=== PATIENT | female | born 1970 | race Caucasian/White ===

== ENCOUNTER → 2016-07-01 | Outpatient (CLI) | payer BC ==
--- NOTE | 2016-07-02 09:07 | MM ---
Reason for exam: screening (asymptomatic). Last mammogram was performed 1 year and 8 months ago. History: Took hormonal contraceptives for 11 years beginning at age 16. Physical Findings: A clinical breast exam by your physician is recommended on an annual basis and results should be correlated with mammographic findings. MG Screening Mammo w CAD Bilateral CC and MLO view(s) were taken. Prior study comparison: November 10, 2014, bilateral MG screening mammo w CAD. The breast tissue is extremely dense which could obscure a lesion on mammography. No significant changes when compared with prior studies. ASSESSMENT: Benign, BI-RAD 2 RECOMMENDATION: Routine screening mammogram of both breasts in 1 year.
== END | disposition home or self-care (01) ==
LOC: RADMAMWWP 08:42
PROVIDERS: ATTEND Obstetrics & Gynecology
DX: Z12.31 Encounter for screening mammogram for malignant neoplasm of breast (principal); N64.52 Nipple discharge

== ENCOUNTER → 2017-02-27 | Outpatient (CLI) | payer BC ==
--- NOTE | 2017-02-27 14:27 | MM ---
Reason for exam: clinical finding. Last mammogram was performed 8 months ago. History: Took hormonal contraceptives for 11 years beginning at age 16. Physical Findings: Nurse did not find any significant physical abnormalities on exam. MG 3D Diag Mammo W/Cad LT CC, MLO, and XCCL view(s) were taken of the left breast. Prior study comparison: July 01, 2016, bilateral MG screening mammo w CAD. November 10, 2014, bilateral MG screening mammo w CAD. The breast tissue is heterogeneously dense. This may lower the sensitivity of mammography. No suspicious abnormality. These results were verbally communicated with the patient and result sheet given to the patient on 02/27/17. ASSESSMENT: Negative, BI-RAD 1 RECOMMENDATION: Return to routine screening mammogram schedule for both breasts. Back on schedule for June 2017.
--- NOTE | 2017-02-27 14:36 | USB ---
Reason for exam: clinical finding. History: Took hormonal contraceptives for 11 years beginning at age 16. US Breast LT Left breast ultrasound includes all four quadrants, the retroareolar region and axilla. Finding demonstrates a 0.6 x 0.3 x 0.7cm mixed lesion at 1 o'clock for which a biopsy is recommended, a 0.8 x 0.4 x 0.6cm hyperechoic lesion within a duct at 5 o'clock for which a biopsy is recommended, a 0.3 x 0.3 x 0.5cm lesion at 6 o'clock, increased through transmission, benign cyst and duct ectasia at the posterior nipple. These results were verbally communicated with the patient and result sheet given to the patient on 02/27/17. ASSESSMENT: Suspicious, BI-RAD 4 RECOMMENDATION: Ultrasound core biopsy of the left breast. Called Dr. Tafoya with mammographic findings and has scheduled an appointment for the patient for 03/10/17 at 11:[address] Mitchell. Biopsy scheduled for 03/02/17 at 12:20. PRELIMINARY REPORT CALLED AND FAXED TO DR. MITCHELL ON 02/27/17.
== END | disposition home or self-care (01) ==
LOC: RADMAMWWP 09:46
PROVIDERS: ATTEND Obstetrics & Gynecology
DX: N64.52 Nipple discharge (principal); N64.4 Mastodynia
CPT/HCPCS: 77065; 76641; G0279

== ENCOUNTER → 2017-03-02 | Day surgery (SDC) | payer BC ==
[2017-03-02 11:50] VITALS: RESP 16; BMI 32.3
[2017-03-02 13:43] VITALS: BP 123/80; PULSE 75; TEMP 99.1
--- NOTE | 2017-03-02 15:18 | USB ---
EXAMINATION TYPE: US biopsy breast VAD LT, US biopsy breast add'l VAD LT, Post biopsy diagnostic mammo LT wo CAD DATE OF EXAM: 03/02/2017 CLINICAL HISTORY: 46-year-old female R92.8 Abnormal Mammogram. TECHNIQUE: Ultrasound guided core biopsy of the left breast, 2 sites. Patient with bloody nipple discharge. COMPARISON: 02/27/2017 FINDINGS: The procedure of ultrasound guided core biopsy was explained to the patient. Benefits, alternatives, and risks were discussed. An informed consent was then obtained. The patient was placed in supine positioning for imaging and for the procedure. The overlying skin was prepped and draped in usual sterile fashion. Lidocaine buffered with bicarbonate was used as anesthetic into the skin and subcutaneous tissue up to area of concern in the left breast at each lesion in turn. SITE 1, intraductal mass, 5:00: Under ultrasound guidance, a a 13-gauge vacuum- assisted mammotome Elite biopsy gun device was used to obtain 6 core samples. Following this, a coil clip was left in lesion. Small amount of bleeding was present, approximately 5 ml or less. SITE 2, oval hypoechoic, 1:00: Under ultrasound guidance, a a 13-gauge vacuum- assisted mammotome Elite biopsy gun device was used to obtain 5 core samples. Following this, a ribbon clip was left in lesion. The patient tolerated the procedure well without any immediate complication. The patient was kept in the radiology department for short stay after the procedure and then discharged home in stable condition. IMPRESSION: Successful, uncomplicated ultrasound guided core biopsy of area of concern in the left breast, 2 sites: Site 1, intraductal mass likely etiology of patient's bloody nipple discharge ( coil clip). Site 2, ovoid hypoechoic lesion, relatively low suspicion (ribbon clip). Full pathology results to follow. Pathology Results: High Risk A. BREAST, LEFT, 5:00, STEREOTACTIC CORE BIOPSY: INTRADUCTAL PAPILLOMA. STROMAL FIBROSIS, CYST FORMATION, APOCRINE METAPLASIA, DUCT ECTASIA, AND DUCT HYPERPLASIA. B. BREAST, LEFT, 1:00, BIOPSY: FIBROCYSTIC CHANGE (FIBROSIS, CYST FORMATION, APOCRINE METAPLASIA, DUCT ECTASIA AND DUCT HYPERPLASIA). Recommendation Surgical consult of the left breast. ALE
== END ==
LOC: RADUSWWP 11:25
PROVIDERS: ATTEND Surgery
DX: D24.2 Benign neoplasm of left breast (principal); N60.32 Fibrosclerosis of left breast; N60.02 Solitary cyst of left breast; N60.82 Other benign mammary dysplasias of left breast; N60.42 Mammary duct ectasia of left breast; N60.92 Unspecified benign mammary dysplasia of left breast; R92.8 Other abnormal and inconclusive findings on diagnostic imaging of breast
CPT/HCPCS: 88305; 77065; 19083; 19084; A4648; J2001

== ENCOUNTER 2017-03-13 08:32 | Day surgery (SDC) | payer BC ==
[2017-03-11 11:15] VITALS: BMI 32.3
--- NOTE | 2017-03-13 07:56 | P.GSHP ---
History of Present Illness H&P Date: 03/13/17 Chief Complaint: Abnormal breast imaging study 46 yrs old female presenting with bloody nipple discharge left breast. No breast pain . No axillary mass or breast mass. Mammogram was negative. US showed suspicious at 1 and 5 o clock and biopsy recommended. US guided core bx performed and shows following: A. BREAST, LEFT, 5:00, STEREOTACTIC CORE BIOPSY: INTRADUCTAL PAPILLOMA. STROMAL FIBROSIS, CYST FORMATION, APOCRINE METAPLASIA, DUCT ECTASIA, AND DUCT HYPERPLASIA. B. BREAST, LEFT, 1:00, BIOPSY: FIBROCYSTIC CHANGE (FIBROSIS, CYST FORMATION, APOCRINE METAPLASIA, DUCT ECTASIA AND DUCT HYPERPLASIA). - Review of Systems Comment: Constitutional: No fever, chills or rigors. No weight loss or loss of appetite. HEENT: No difficulty with hearing, vision and swallowing. Lymphatic: No axillary, inguinal and cervical swellings. Endocrine: No thyroid disorders. Denies history of diabetes. Respiratory: No chest pain, shortness of breath, and cough. No hemoptysis. Cardiovascular: No palpitations, irregular HR Gastrointestinal: Denies heartburn. No change in bowel habits. No nausea or vomiting. Genitourinary: No increase in urinary frequency or urgency. No hematuria. Musculoskeletal: No back pain, joint stiffness or pain. Neurologic: No history of seizure disorder and headaches. Psychiatric: Denies depression or anxiety . No suicidal ideation. Hematologic: Denies any abnormal mucosal bleeding or easy bruising. Past Medical History Past Medical History: No Reported History Additional Past Medical History / Comment(s): papilloma left breast,hx colon polyps History of Any Multi-Drug Resistant Organisms: None Reported Past Surgical History: Tonsillectomy Additional Past Surgical History / Comment(s): left breast bx,colonoscopy Past Anesthesia/Blood Transfusion Reactions: No Reported Reaction Smoking Status: Former smoker - Past Family History Mother History Unknown: Yes Medications and Allergies Home Medications Medication Instructions Recorded Confirmed Type PARoxetine [Paxil] 10 mg PO QAM 02/27/17 03/11/17 History buPROPion XL [Wellbutrin Xl] 150 mg PO QAM 02/27/17 03/11/17 History Allergies Allergy/AdvReac Type Severity Reaction Status Date / Time No Known Allergies Allergy Verified 03/11/17 11:04 Surgical - Exam General: Patient is alert and oriented to time, place and person and cooperative with exam. HEENT: No pallor, no icterus, no thyroid enlargement. Chest: Bilateral equal breath sounds present. Cardiovascular: Regular rate and rhythm. Abdomen: Soft, nontender, nondistended. Integumentary: Bilateral lower extremity chronic venous dermatitis. No active ulcers or discharge. Neurologic: Cranial nerves II-XII intact. Strength upper and lower extremities 5/5. No focal neurologic deficits. Gait is normal. Breasts: Symmetrical, no palpable mass. No nipple retraction. No nipple discharge Results - Imaging Comments: Mammogram and US reviewed Assessment and Plan (1) Intraductal papilloma of left breast Status: Acute Code(s): D24.2 - BENIGN NEOPLASM OF LEFT BREAST SNOMED Code(s) : 8013219138209930 Plan: 1. Intraductal papilloma left breast with bloody nipple discharge 2. Wire loc excision of left breast lesion at 5 o clock by US. 3. Informed consent obtained
[~2017-03-13 08:32] MED LIST: DEXAMETHASONE SOD PHOSPHATE 10 MG/ML 1 ML VIAL IV ONE; HEPARIN SODIUM,PORCINE 5,000 UNIT/ML 1 ML VIAL SQ ONE; LACTATED RINGERS 1,000 ML IV SCH; MIDAZOLAM 2 MG/2 ML VIAL IV PRN; MORPHINE SULFATE 4 MG/ML SYRINGE IV PRN; ONDANSETRON 4 MG/2 ML VIAL IVP ONE; Pre Op ABX Message 1 EACH MISC MISCELLANE ONE; SCOPOLAMINE 1.5MG/72HR PATCH TRANSDERM ONE
[2017-03-13 08:56] VITALS: RESP 16
[2017-03-13] MEDS ORDERED: LIDOCAINE 1% INJ 10MG/ML (20 ML MDV) SQ ONE (10:12)
[2017-03-13] MEDS ORDERED: SODIUM BICARB 4% 5 ML VIAL (0.48 MEQ/ML) MISCELLANE ONE (10:12)
[2017-03-13] MEDS ORDERED: LIDOCAINE 1%/EPI 1:200,000 MPF 10 ML VIAL SQ ONE (10:12)
[2017-03-13] MEDS ORDERED: PROPOFOL 10 MG/ML 20 ML VIAL IV ONE (11:16)
[2017-03-13] MEDS ORDERED: fentaNYL (PF) 50 MCG/ML 2 ML AMP ONE (11:16)
[2017-03-13] MEDS ORDERED: MIDAZOLAM 2 MG/2 ML VIAL ONE (11:16)
[2017-03-13] MEDS ORDERED: SODIUM CHLORIDE 0.9% 50 ML with ceFAZolin 2,000 MG IV ONE ×2 (11:38)
[2017-03-13] MEDS ORDERED: LIDOCAINE 1%-EPI 1:100,000 20 ML VIAL SQ ONE (11:47)
[2017-03-13] MEDS ORDERED: LACTATED RINGERS 1,000 ML IV ONE (12:09)
[2017-03-13 12:23] VITALS: TEMP 97.9
[2017-03-13 13:06] VITALS: BP 130/79; PULSE 91
[2017-03-13] MEDS ORDERED: Acetaminophen-Codeine 300-30mg TAB PO ONE (13:06)
--- NOTE | 2017-03-13 13:57 | MM ---
EXAMINATION TYPE: MG pre op needle loc LT, MG surgical specimen LT DATE OF EXAM: 03/13/2017 COMPARISON: Prior mammogram March 02, 2017 and older studies. CLINICAL HISTORY: High risk ultrasound-guided core biopsy March 02, 2017 with papilloma. Positive discharge. TECHNIQUE: Needle localization with wire placement and surgical excision of area of concern in the left breast. FINDINGS: The procedure of needle localization with wire placement and than surgical excision was explained to the patient. Benefits, alternatives, and risks were discussed. An informed consent was then obtained. The shortest pathway for procedure was chosen. Shortest pathway was inferior approach. The overlying skin was prepped and draped in usual sterile fashion. Lidocaine buffered with bicarbonate was used as anesthetic into the skin. Lidocaine with epinephrine is used as anesthetic into the deeper tissue up to the level of area of concern. A 5 cm needle was used. During injection of anesthetic there was blood and anesthetic coming from nipple. It was placed via a inferior approach under mammographic guidance. Subsequent 90 degrees mammogram show the needle to be in satisfactory position relative to the targeted area. At this point, wire was placed and the needle was withdrawn. The wire was fixed to patient's skin. Images were marked for surgeon. The patient tolerated the procedure well without any immediate complication. The patient was kept in the radiology department for short stay after the procedure and then taken to surgery for surgical excision. Targeted biopsy clip and wire are identified in specimen mammogram. The patient was kept in hospital for short stay after the procedure and then discharged home in stable condition. IMPRESSION: Successful, uncomplicated needle localization with wire placement and surgical excision of targeted biopsy clip in the left breast, full pathology results to follow. Pathology Results: High Risk BREAST, LEFT, NEEDLE LOCALIZATION EXCISION: INTRADUCTAL PAPILLOMA, MARGINS NEGATIVE. BACKGROUND FIBROCYSTIC CHANGES INCLUDING FIBROSIS, CYSTS, APORINE METAPLASIA AND SCLEROSING ADENOSIS. PREVIOUS BIOPSY SITE. Recommendation Follow up mammogram of the left breast in 6 months. ALE
--- NOTE | 2017-03-21 12:41 | P.OP ---
Date of Procedure: 03/13/17 Preoperative Diagnosis: Bloody nipple discharge left breast Intraductal papilloma Postoperative Diagnosis: Same Procedure(s) Performed: Left breast wire localization lumpectomy Implants: NA Anesthesia: MAC, local Surgeon: Lisette Mitchell Estimated Blood Loss (ml): 5 Pathology: other Condition: stable Disposition: PACU Indications for Procedure: 46 yrs old female presented with abnormal US left breast. Mammogram was benign. US showed lesions at 1, 5 and 6 o clock left breast and biopsy recommended of 1 and 5 o' clock lesions. 5 o clock biopsy shows intraductal papilloma and 1 o clock biopsy shows fibrocystic changes. She has intermittent bloody left nipple discharge predominantly from one duct. Patient agreed to undergo wire loc lumpectomy of 5 o clock area. Description of Procedure: The mammogram films from wire localization biopsy were reviewed. The patient was brought to the operating room and placed in supine position with both arms out. IV sedation was given as per anesthesia team. The excess wire was cut and the left breast was prepped using ChloraPrep. Sterile drapes were applied. A timeout was performed to verify correct patient, correct procedure and correct side. Patient was confirmed to receive perioperative IV antibiotics , heparin 5000 units subcutaneous injection for DVT prophylaxis and bilateral SCDs. A 3 cm curvilinear skin incision was made along the left areola border at the wire exit site. Superior and inferior subcutaneous flaps were raised in the direction of wire. A 2 cm circumferential breast tissue was removed around the wire and the tip of the wire was included in the specimen. The offending duct filled with bloody material was identified and completely excised. The specimen was then labeled with different colors as per the protocol. It was sent off as a specimen for pathology evaluation . The resulting defect was irrigated with normal saline and checked for hemostasis. The defect measured 3.8 x 2.2x 1.5 cm. Medium clips applied to racquel the cavity. This was closed in 2 layers using interrupted sutures of 3-0 Vicryl followed by running subcuticular stitches of 4-0 Monocryl. Dermabond skin glue was applied. The sponge, instrument and needle count were correctx 2. Phone formation received during surgery that the area of concern along with the clip and wire was included in the specimen. Patient tolerated the procedure well and was taken to post anesthesia care unit in stable condition. Final Pathologic Diagnosis BREAST, LEFT, NEEDLE LOCALIZATION EXCISION: INTRADUCTAL PAPILLOMA, MARGINS NEGATIVE. BACKGROUND FIBROCYSTIC CHANGES INCLUDING FIBROSIS, CYSTS, APOCRINE METAPLASIA AND SCLEROSING ADENOSIS. PREVIOUS BIOPSY SITE.
== END 2017-03-13 14:00 | disposition home or self-care (01) ==
LOC: OR 08:32
PROVIDERS: ATTEND Surgery
DX: D24.2 Benign neoplasm of left breast (principal); N60.32 Fibrosclerosis of left breast; N60.82 Other benign mammary dysplasias of left breast; N60.22 Fibroadenosis of left breast; Z79.899 Other long term (current) drug therapy; Z87.891 Personal history of nicotine dependence; Z86.010 Personal history of colon polyps
CPT/HCPCS: 19125; 88307; 76098; 19281; J2250; J1644; J1100; J2405; J2001; J3010; J0690; J2704

== ENCOUNTER → 2017-09-25 | Outpatient (CLI) | payer BC ==
--- NOTE | 2017-09-26 11:06 | MM ---
Reason for exam: follow-up at short interval from prior study. Last mammogram was performed 7 months ago. History: Patient has history of high-risk lesion on a previous biopsy at age 46. High risk MG pre op needle loc LT of the left breast, March 13, 2017. High risk US biopsy breast VAD LT of the left breast, March 02, 2017. High risk US biopsy breast add'l VAD LT of the left breast, March 02, 2017. Took hormonal contraceptives for 11 years beginning at age 16. Physical Findings: Nurse did not find any significant physical abnormalities on exam. MG 3D Diag Mammo W/Cad CELIA Bilateral CC and MLO view(s) were taken. Prior study comparison: March 02, 2017, left breast MG diagnostic mammo LT wo CAD. February 27, 2017, left breast MG 3d diag mammo w/cad LT. The breast tissue is heterogeneously dense. This may lower the sensitivity of mammography. Finding: There is an oval mass in the lower inner quadrant of the right breast at medial depth for which ultrasound will be performed. Left breast biopsy marker noted with post excision changes at anterior depth. These results were verbally communicated with the patient and result sheet given to the patient on 10/03/17. ASSESSMENT: Incomplete: need additional imaging evaluation, BI-RAD 0 RECOMMENDATION: Ultrasound of the right breast. Diagnostic ultrasound right breast lower inner quadrant.
--- NOTE | 2017-09-26 11:11 | USB ---
Reason for exam: additional evaluation requested from prior study. History: Patient has history of high-risk lesion on a previous biopsy at age 46. High risk MG pre op needle loc LT of the left breast, March 13, 2017. High risk US biopsy breast VAD LT of the left breast, March 02, 2017. High risk US biopsy breast add'l VAD LT of the left breast, March 02, 2017. Took hormonal contraceptives for 11 years beginning at age 16. US Breast Limited RT Technologist: Ledy Ramirez, RT (R)(M) Right limited breast ultrasound including focal area of concern, retroareolar and axilla demonstrates a 11 x 6 x 6 mm oval cystic lesion at 5 o'clock, a 4 x 4 x 4 mm cystic lesion at 5 o'clock, correlates with the mammogram. ASSESSMENT: Benign, BI-RAD 2 RECOMMENDATION: Routine screening mammogram of both breasts in 1 year.
== END | disposition home or self-care (01) ==
LOC: RADMAMWWP 11:15
PROVIDERS: ATTEND Obstetrics & Gynecology
DX: R92.8 Other abnormal and inconclusive findings on diagnostic imaging of breast (principal)
CPT/HCPCS: 77062; 77066

== ENCOUNTER → 2018-01-19 | Outpatient (CLI) | payer BC ==
[2018-01-19 15:01] LABS: Basophils % (A) 0 %; Eosinophils # (A) 0.1 k/uL (0-0.7); Eosinophils % (A) 2 %; HCT 43.1 % (34.0-46.0); Lymphocytes # (A) 2.8 k/uL (1.0-4.8); Lymphocytes % (A) 35 %; MCH 31.8 pg (25.0-35.0); MCHC 34.8 g/dL (31.0-37.0); MCV 91.3 fL (80.0-100.0); Mean Platelet Volume 6.6; Monocytes # (A) 0.5 k/uL (0-1.0); Monocytes % (A) 6 %; Neutrophils # (A) 4.4 k/uL (1.3-7.7); Neutrophils % (A) 55 %; Platelet Count 239 k/uL (150-450); RBC 4.71 m/uL (3.80-5.40); RDW 13.3 % (11.5-15.5)
[2018-01-19 15:19] LABS: Anion Gap 9 mmol/L; Blood Urea Nitrogen 12 mg/dL (7-17); Carbon Dioxide 25 mmol/L (22-30); Chloride 108 mmol/L (98-107); Glucose 120 mg/dL (74-99); Potassium 4.6 mmol/L (3.5-5.1); Sodium 142 mmol/L (137-145)
== END | disposition home or self-care (01) ==
LOC: LABPAT 11:40
PROVIDERS: ATTEND Obstetrics & Gynecology
DX: Z01.812 Encounter for preprocedural laboratory examination (principal); R87.612 Low grade squamous intraepithelial lesion on cytologic smear of cervix (LGSIL)
CPT/HCPCS: 80051; 82565; 82947; 84520; 85025; 87086

== ENCOUNTER 2018-01-25 05:36 | Day surgery (SDC) | payer BC ==
[2018-01-18 12:06] VITALS: BMI 31.5
[~2018-01-25 05:36] MED LIST changes: -HEPARIN SODIUM,PORCINE 5,000 UNIT/ML 1 ML VIAL SQ ONE; +HYDROmorphone 0.5 MG/0.5 ML SYRINGE IVP PRN; -LACTATED RINGERS 1,000 ML IV SCH; +LIDOCAINE 1% 20 ML VIAL (10MG/ML) FOR IV START INTRADERMA PRN; -MORPHINE SULFATE 4 MG/ML SYRINGE IV PRN; -Pre Op ABX Message 1 EACH MISC MISCELLANE ONE; +ceFAZolin IN SWFI 2 GM/20 ML SYRINGE IVP ONE
[2018-01-25] MEDS: LACTATED RINGERS 1,000 ML IV SCH (06:27)
[2018-01-25] MEDS ORDERED: diphenhydrAMINE 50 MG/ML 1 ML VIAL ONE (07:19)
[2018-01-25] MEDS ORDERED: MIDAZOLAM 2 MG/2 ML VIAL ONE (07:19)
[2018-01-25] MEDS ORDERED: KETOROLAC 30 MG/ML 1 ML VIAL ONE (07:19)
[2018-01-25] MEDS ORDERED: fentaNYL (PF) 50 MCG/ML 2 ML AMP ONE (07:19)
[2018-01-25] MEDS ORDERED: KETOROLAC 30 MG/ML 1 ML VIAL IVP PRN ×2 (07:48→08:32)
[2018-01-25] MEDS ORDERED: NALBUPHINE 10 MG/ML VIAL (10ML MDV) IV PRN (07:48)
[2018-01-25] MEDS ORDERED: NALOXONE 0.4 MG/ML 1 ML VIAL IV PRN (07:48)
[2018-01-25] MEDS ORDERED: MORPHINE SULFATE 4 MG/ML SYRINGE IVP PRN (07:48)
[2018-01-25] MEDS ORDERED: diphenhydrAMINE 25 MG CAP PO PRN ×2 (07:48→08:32)
[2018-01-25] MEDS ORDERED: VASOPRESSIN 20 UNIT/ML 1 ML VIAL SQ ONE ×2 (07:49)
[2018-01-25] MEDS ORDERED: BACITRACIN 500 UNIT/GM OINT 28.4 GM TUBE TOPICAL ONE ×2 (07:56→08:26)
[2018-01-25] MEDS ORDERED: SIMETHICONE 80 MG CHEWABLE PO PRN (08:32)
[2018-01-25] MEDS ORDERED: Acetaminophen-Codeine 300-30mg TAB PO PRN (08:32)
[2018-01-25] MEDS ORDERED: METOCLOPRAMIDE 5 MG/ML 2 ML VIAL IVP PRN (08:32)
[2018-01-25] MEDS ORDERED: ONDANSETRON 4 MG/2 ML VIAL IVP PRN (08:32)
--- NOTE | 2018-01-25 08:32 | P.OP ---
Date of Procedure: 01/25/18 Preoperative Diagnosis: Persistently abnormal Pap smear Postoperative Diagnosis: Same, normal-appearing ovaries bilaterally, pathology pending Procedure(s) Performed: Vaginal hysterectomy Anesthesia: spinal Surgeon: Radha Tafoya Tax Lawyer #1: Nik Armendariz Estimated Blood Loss (ml): 25 IV fluids (ml): 800 Urine output (ml): 400 Pathology: other (Cervix and uterus) Condition: stable Disposition: PACU Indications for Procedure: Persistently abnormal Pap smear despite LEEP procedure Operative Findings: Normal-appearing ovaries bilaterally Description of Procedure: Patient is brought to the [facility] and suite where a spinal with Duramorph is administered. Antibiotics are given. Urine hCG is negative. The appropriate timeout is performed to assure proper patient and procedural identification. The cervix, vagina, and perineal bodies are all prepped and draped in usual sterile fashion. The weighted speculum was placed into the vagina. The bladder is drained for approximately 400 mL of clear yellow urine. The anterior lip of the cervix is grasped with a double-tooth tenaculum and the cervix is injected circumferentially with a dilute Pitressin solution, 10 mL total. A mechoopda scalpel blade is used circumferentially to incise the mucosa with a V positioning at 6:00. A sponge is used to sweep the mucosa from the underlying fascial plane. Peritoneum is entered at 6:00 and suture tied with 2-0 Vicryl. The large billed speculum was then placed into the vagina. At all times the mucosa is Well from the operative field to avoid bladder and/or ureteral injury. Frank clamps are used and the right uterosacral ligament is identified, clamped, cut and held with a 0 Vicryl suture laterally. Same is carried out on the contralateral pedicle. Uterine vasculature is identified, clamped cut and suture ligated. 2 additional pedicles are taken superior to the vessels. Anterior peritoneum was entered at 12:00. The uterus is "walked out" posteriorly. Frank clamps are used across the final pedicles and the uterus and cervix are removed and sent to pathology. The pedicles are suture tied with 0 Vicryl, flashed, and retied for excellent hemostasis. Bilateral ovaries are inspected and noted to be normal. All pedicles are reevaluated and noted to be clean and dry. Speculum is replaced with the shallow billed speculum and the 2-0 Vicryl suture is brought around in a pursestring fashion to close the peritoneum. The uterosacral ligament complex these are then brought across to incorporate the opposite ligament and vaginal mucosa. 3 additional [id number] sutures are used of 0 Vicryl for final cuff closure. Vagina is packed with one-inch iodophor gauze with basic tracing. Calixto catheter is placed and urine is clear. All sponge needle and enhancement counts are correct. Total estimated blood loss 25 mL's. Fluid replacement 800 mL's. Patient is brought back to the recovery room in very stable condition with a blood pressure of 150/75, pulse of 80, 100% O2 saturation.
[2018-01-25] MEDS ORDERED: LACTATED RINGERS 1,000 ML IV ONE ×2 (09:00)
[2018-01-25] MEDS ORDERED: ZOLPIDEM 5 MG TAB PO PRN (21:00)
[2018-01-26] MEDS: IBUPROFEN 600 MG TAB PO PRN ×2 (05:46→12:21)
[2018-01-26] MEDS: LACTATED RINGERS 1,000 ML IV SCH (06:06)
--- NOTE | 2018-01-26 06:57 | P.DS ---
Providers Date of admission: 01/25/18 Expected date of discharge: 01/26/18 Attending physician: Radha Tafoya Primary care physician: April Fontana Hospital Course: This is a 47-year-old white female 2 para 2001 who presented with a persistently abnormal Pap smear. She has had a previous LEEP procedure, however repeat Pap smears are still consistent with low-grade ADELA, positive ECC. After thorough consultation, patient elected to proceed with vaginal hysterectomy. Please see dictated history and physical for details. Patient was admitted and underwent vaginal hysterectomy under my care yesterday. She did very well intraoperatively. Ovaries appeared normal and were left in situ per her wishes. Vaginal packing was placed, Calixto catheter placed, patient did receive spinal with Duramorph. Please see dictated operative note for details. This morning the patient is doing well. Calixto catheter and vaginal packing had been removed. She is passing gas. She is urinating spontaneously. There is no vaginal bleeding. Vital signs are stable and she is afebrile. There is no CVA tenderness. Abdomen is soft and nontender, active bowel sounds. Chest is clear. Patient is judged to be in excellent condition for discharge home. Patient will follow-up with me in the office in 2 weeks. I have reminded her no intercourse, tampons, heavy lifting, no douching. No driving for 2 weeks. She will call with any vaginal bleeding, any pain not alleviated by over-the- counter Advil or Aleve, any difficulties ambulating, or indeed with any concerns. Patient Condition at Discharge: Good Plan - Discharge Summary Discharge Rx Participant: No New Discharge Prescriptions: No Action buPROPion XL [Wellbutrin Xl] 150 mg PO QAM PARoxetine [Paxil] 20 mg PO QAM Crestor Dose Unk 1 each PO DAILY Discharge Medication List PARoxetine [Paxil] 20 mg PO QAM 02/27/17 [History] buPROPion XL [Wellbutrin Xl] 150 mg PO QAM 02/27/17 [History] Crestor Dose Unk 1 each PO DAILY 01/18/18 [History] Follow up Appointment(s)/Referral(s): Radha Tafoya MD [STAFF PHYSICIAN] - 2 Weeks Discharge Disposition: HOME SELF-CARE
--- NOTE | 2018-01-26 07:11 | P.PN ---
Progress Note - Text Progress Note Date: 01/26/18 Patient is postop day 1 vaginal hysterectomy with Duramorph spinal. Patient doing well with no motor sensory deficits. No nausea, vomiting, pruritus. Ambulate without any complications, tolerating diet. Patient to be sent home today.
[2018-01-26 07:46] VITALS: BP 128/71; PULSE 69; TEMP 98.7
[2018-01-26] MEDS ORDERED: buPROPion XL 150 MG TAB.ER.24H PO SCH (09:00)
[2018-01-26] MEDS ORDERED: PARoxetine 20 MG TAB PO SCH (09:00)
[2018-01-26 13:17] VITALS: RESP 17
== END 2018-01-26 13:10 | disposition home or self-care (01) ==
LOC: OR 05:36 → 4FBP 08:46 → OR 01-26 13:10
PROVIDERS: ATTEND Obstetrics & Gynecology
DX: N87.1 Moderate cervical dysplasia (principal); E78.5 Hyperlipidemia, unspecified; F41.9 Anxiety disorder, unspecified; F39 Unspecified mood [affective] disorder; Z79.82 Long term (current) use of aspirin; Z79.3 Long term (current) use of hormonal contraceptives; Z79.899 Other long term (current) drug therapy; Z88.8 Allergy status to other drugs, medicaments and biological substances; Z87.891 Personal history of nicotine dependence
CPT/HCPCS: 81025; 88309; 58260; J2250; J1200; J1100; J2405; J3010; J1885; J0690; 86850; 86900; 86901

== ENCOUNTER → 2018-12-10 | Outpatient (CLI) | payer BC ==
--- NOTE | 2018-12-13 08:24 | MM ---
Reason for exam: screening (asymptomatic). Last mammogram was performed 1 year and 2 months ago. History: Patient has history of high-risk lesion on a previous biopsy at age 46. High risk MG pre op needle loc LT of the left breast, March 13, 2017. High risk US biopsy breast VAD LT of the left breast, March 02, 2017. High risk US biopsy breast add'l VAD LT of the left breast, March 02, 2017. Took hormonal contraceptives for 11 years beginning at age 16. Physical Findings: A clinical breast exam by your physician is recommended on an annual basis and results should be correlated with mammographic findings. MG 3D Screening Mammo W/Cad Bilateral CC and MLO view(s) were taken. Prior study comparison: September 25, 2017, bilateral MG 3d diag mammo w/cad CELIA. March 02, 2017, left breast MG diagnostic mammo LT wo CAD. The breast tissue is extremely dense which could obscure a lesion on mammography. Benign appearing bilateral calcifications. Previous mammotome biopsy in the left breast. No significant changes when compared with prior studies. ASSESSMENT: Benign, BI-RAD 2 RECOMMENDATION: Routine screening mammogram of both breasts in 1 year.
== END | disposition home or self-care (01) ==
LOC: RADMAMWWP 10:16
PROVIDERS: ATTEND Obstetrics & Gynecology
DX: Z12.31 Encounter for screening mammogram for malignant neoplasm of breast (principal)
CPT/HCPCS: 77063; 77067

== ENCOUNTER → 2020-04-05 | Outpatient (CLI) | payer BC ==
--- NOTE | 2020-04-09 09:29 | MM ---
Reason for exam: screening (asymptomatic). Last mammogram was performed 1 year and 4 months ago. History: Patient is postmenopausal and has history of high-risk lesion on a previous biopsy at age 46. High risk MG pre op needle loc LT of the left breast, March 13, 2017. High risk US biopsy breast VAD LT of the left breast, March 02, 2017. High risk US biopsy breast add'l VAD LT of the left breast, March 02, 2017. Took hormonal contraceptives for 11 years beginning at age 16. Physical Findings: A clinical breast exam by your physician is recommended on an annual basis and results should be correlated with mammographic findings. MG 3D Screening Mammo W/Cad Bilateral CC and MLO view(s) were taken. Prior study comparison: December 10, 2018, bilateral MG 3d screening mammo w/cad. September 25, 2017, bilateral MG 3d diag mammo w/cad CELIA. The breast tissue is heterogeneously dense. This may lower the sensitivity of mammography. Previous mammotome biopsy in the left breast. Focal asymmetry left MLO. This finding is changed when compared with previous exams. ASSESSMENT: Incomplete: need additional imaging evaluation, BI-RAD 0 RECOMMENDATION: Special view mammogram of the left breast. If lesion persists on supplemental views, image directed ultrasound is recommended. [facility] will attempt to contact patient to return for supplemental views and ultrasound if indicated.
== END | disposition home or self-care (01) ==
LOC: RADMAMWWP 16:37
PROVIDERS: ATTEND Obstetrics & Gynecology
DX: Z12.31 Encounter for screening mammogram for malignant neoplasm of breast (principal)
CPT/HCPCS: 77063; 77067

== ENCOUNTER → 2020-04-18 | Outpatient (CLI) | payer BC ==
--- NOTE | 2020-04-19 09:29 | MM ---
Reason for exam: additional evaluation requested from abnormal screening. Last mammogram was performed less than 1 month ago. History: Patient is postmenopausal and has history of high-risk lesion on a previous biopsy at age 46. High risk MG pre op needle loc LT of the left breast, March 13, 2017. High risk US biopsy breast VAD LT of the left breast, March 02, 2017. High risk US biopsy breast add'l VAD LT of the left breast, March 02, 2017. Took hormonal contraceptives for 11 years beginning at age 16. Physical Findings: Nurse did not find any significant physical abnormalities on exam. MG 3D Work Up W/Cad LT Spot compression CC, spot compression MLO, and ML view(s) were taken of the left breast. Prior study comparison: April 05, 2020, bilateral MG 3d screening mammo w/cad. December 10, 2018, bilateral MG 3d screening mammo w/cad. The breast tissue is heterogeneously dense. This may lower the sensitivity of mammography. Previous mammotome biopsy in the left breast. The central posterior focal asymmetry appears to disperse on additional views. Precautionary 6 month follow up recommended given appearance on the screening exam. These results were verbally communicated with the patient and result sheet given to the patient on 04/18/20. ASSESSMENT: Probably benign, BI-RAD 3 RECOMMENDATION: Follow-up diagnostic mammogram of the left breast in 6 months.
== END ==
LOC: RADMAMWWP 14:53
PROVIDERS: ATTEND Obstetrics & Gynecology
DX: R92.2 Inconclusive mammogram (principal); Z78.0 Asymptomatic menopausal state
CPT/HCPCS: 77061; 77065

== ENCOUNTER → 2020-10-24 | Outpatient (CLI) | payer BC ==
--- NOTE | 2020-10-24 14:08 | MM ---
Reason for exam: follow-up at short interval from prior study. Last mammogram was performed 6 months ago. History: Patient is postmenopausal and has history of high-risk lesion on a previous biopsy at age 46. High risk MG pre op needle loc LT of the left breast, March 13, 2017. High risk US biopsy breast VAD LT of the left breast, March 02, 2017. High risk US biopsy breast add'l VAD LT of the left breast, March 02, 2017. Took hormonal contraceptives for 11 years beginning at age 16. Physical Findings: Nurse did not find any significant physical abnormalities on exam. MG 3D Diag Mammo W/Cad LT CC and MLO view(s) were taken of the left breast. Prior study comparison: April 18, 2020, left breast MG 3d work up w/cad LT. April 05, 2020, bilateral MG 3d screening mammo w/cad. The breast tissue is heterogeneously dense. This may lower the sensitivity of mammography. Previous mammotome biopsy in the left breast. There is no discrete abnormality including area of concern. These results were verbally communicated with the patient and result sheet given to the patient on 10/24/20. ASSESSMENT: Negative, BI-RAD 1 RECOMMENDATION: Return to routine screening mammogram schedule for both breasts. Back on schedule for March 2021.
== END | disposition home or self-care (01) ==
LOC: RADMAMWWP 13:15
PROVIDERS: ATTEND Obstetrics & Gynecology
DX: R92.8 Other abnormal and inconclusive findings on diagnostic imaging of breast (principal); Z78.0 Asymptomatic menopausal state
CPT/HCPCS: 77061; 77065

== ENCOUNTER → 2021-08-30 | Outpatient (CLI) | payer BC ==
--- NOTE | 2021-09-02 09:35 | MM ---
Reason for Exam: Screening (asymptomatic). Last mammogram was performed 1 year(s) and 5 month(s) ago. Patient History: Menarche at age 12. First Full-Term at age 28. Hysterectomy at age 48. Postmenopausal. Hormonal Contraceptives for 11 years from age 16 until age 27. 03/13/2017, High risk Core Biopsy on the left side. 03/02/2017, High risk Core Biopsy on the left side. 03/02/2017, High risk Core Biopsy on the left side. Risk Values: Kylie 5 year model risk: 1.6%. NCI Lifetime model risk: 14.5%. Prior Study Comparison: 04/05/2020 Bilateral Screening Mammogram, [facility]. 04/18/2020 Left Diagnostic Mammogram, [facility]. 10/24/2020 Left Diagnostic Mammogram, [facility]. Tissue Density: The breast tissue is heterogeneously dense. This may lower the sensitivity of mammography. Findings: Analyzed By CAD. Biopsy clip is seen within the left breast. There is no suspicious group of microcalcifications or new suspicious mass in either breast. Overall Assessment: Negative, BI-RAD 1 Management: Screening Mammogram of both breasts in 1 year. A clinical breast exam by your physician is recommended on an annual basis and results should be correlated with mammographic findings. Electronically signed and approved by: Larry Costello DO
== END | disposition home or self-care (01) ==
LOC: RADMAMWWP 15:57
PROVIDERS: ATTEND Obstetrics & Gynecology
DX: Z12.31 Encounter for screening mammogram for malignant neoplasm of breast (principal); Z78.0 Asymptomatic menopausal state
CPT/HCPCS: 77063; 77067

== ENCOUNTER → 2024-06-07 | Outpatient (CLI) | payer BC ==
--- NOTE | 2024-06-08 07:35 | MM ---
Reason for Exam: Screening (asymptomatic). Last mammogram was performed 1 year(s) and 7 month(s) ago. Patient History: Menarche at age 12. First Full-Term at age 28. Hysterectomy at age 48. Postmenopausal. Hormonal Contraceptives for 11 years from age 16 until age 27. 03/13/2017, High risk Core Biopsy on the left side. 03/02/2017, High risk Core Biopsy on the left side. 03/02/2017, High risk Core Biopsy on the left side. Risk Values: Kylie 5 year model risk: 1.8%. NCI Lifetime model risk: 13.8%. Prior Study Comparison: 10/24/2020 Left Diagnostic Mammogram, [facility]. 08/30/2021 Bilateral MG 3D screening mammo w/cad, [facility]. 11/12/2022 Bilateral MG 3D screening mammo w/cad, [facility]. Tissue Density: The breasts are heterogeneously dense, which may obscure small masses. Findings: Analyzed By CAD. There is no suspicious group of microcalcifications or new suspicious mass in either breast. Overall Assessment: Negative, BI-RAD 1 Management: Screening Mammogram of both breasts in 1 year. . Patient should continue monthly self-breast exams. A clinical breast exam by your physician is recommended on an annual basis. This exam should not preclude additional follow-up of suspicious palpable abnormalities. Note on Kylie scores and lifetime risk: 1. A Kylie score greater than 3% is considered moderate risk. If this is the case, consider specialist referral to assess eligibility for a risk reducing agent. 2. If overall lifetime risk for the development of breast cancer is 20% or higher, the patient may qualify for future screening with alternating mammogram and breast MRI. [facility], , 06/08/2024 7:32 AM. Electronically signed and approved by: Praveen Rosado M.D. Radiologis
== END | disposition home or self-care (01) ==
LOC: RADMAMWWP 16:31
PROVIDERS: ATTEND Obstetrics & Gynecology Obstetrics
DX: Z12.31 Encounter for screening mammogram for malignant neoplasm of breast (principal); R92.333 Mammographic heterogeneous density, bilateral breasts; Z78.0 Asymptomatic menopausal state; Z92.0 Personal history of contraception
CPT/HCPCS: 77063; 77067